=== PATIENT | female | born 2000 ===

== ENCOUNTER 2021-04-24 02:54 | Emergency (ER) | payer SELFPAY ==
[~2021-04-24] VITALS: Ht 160 cm; Wt 54.5 kg
[2021-04-24 03:18] VITALS: BP 122/93
== END 2021-04-24 07:18 | disposition left against medical advice (07) ==
LOC: EMS 02:57
DX: T50.901A Poisoning by unspecified drugs, medicaments and biological substances, accidental (unintentional), initial encounter (principal); Z53.21 Procedure and treatment not carried out due to patient leaving prior to being seen by health care provider; Y92.89 Other specified places as the place of occurrence of the external cause